=== PATIENT | female | born 1970 | race Caucasian/White ===

== ENCOUNTER 2016-07-08 15:24 | Emergency (ER) | payer SELFPAY ==
[~2016-07-08] VITALS: Ht 172.7 cm; Wt 78.2 kg
[~2016-07-08 15:24] MED LIST: ACET-62 PO; DIPH25CA84 PO; OMEP40CA52 PO; SUCR1TAB PO
--- OUTSIDE RECORDS SUMMARY | 2016-07-08 15:27 | XMS REPORT | Continuity of Care Document ---
Author Author [facility] Organization [facility] Address Unknown Phone Unavailable Support Name Relationship Address Phone JUSTYN EDMONDSON [place] [address] Unavailable Insurance Providers Payer Name Policy Number Subscriber Name Relationship Self Pay Iris Cuello 18 Self Problems No Known Problems or Medical conditions. Family History History Response Recorded Date/Time HX Cerebrovascular Accident N 09/25/12 8:59am Hx Seizures N 09/25/12 8:59am Hx Angina N 09/25/12 8:59am Hx Congestive Heart Failure N 09/25/12 8:59am Hx Heart Attack N 09/25/12 8:59am Hx Hypertension N 09/25/12 8:59am Hx Chronic Obstructive Pulmonary Disease (COPD) N 09/25/12 8:59am Hx Diabetes N 09/25/12 8:59am Neurological migraines 06/01/11 6:05pm Social History History Response Recorded Date/Time Smoking Status Former smoker 09/25/12 8:59am Allergies, Adverse Reactions, Alerts Allergen Type Severity Reaction Last Updated No Known Drug Allergies Allergy Unknown 09/25/12 Medications Medication Dose Units Route Sig Qty Days Citalopram Hydrobromide (Celexa) 40 Mg PO HS Topiramate (Topamax) 50 Mg PO BID Amitriptyline Hcl 25 Mg PO HS Paroxetine Hcl 20 Mg PO DAILY Response Recorded Date/Time Status not known Unknown Results No Known Relevant Diagnostic Tests, Laboratory Data and/or Discharge Summary. Procedures Procedure Code Date THER/PROPH/DIAG INJ IV PUSH 15346 06/01/11 TX/PRO/DX INJ SAME DRUG CLAIMS COUNSEL 28102 06/01/11 HYDRATE IV INFUSION ADD-ON 43298 06/01/11 Encounters Encounter Location Date/Time Departed Emergency Room [facility] 09/25/12 8:30am
--- OUTSIDE RECORDS SUMMARY | 2016-07-08 15:27 | XMS REPORT | Continuity of Care Document ---
Author Author [facility] Organization [facility] Address Unknown Phone Unavailable Support Name Relationship Address Phone BHARATH BLAKE Caregiver [facility] [address] [place], [place] [id number] TERESITA SANDOVAL MD Caregiver [address] [place] [address] JUSTYN EDMONDSON [place] [address] Insurance Providers Payer Name Policy Number Subscriber Name Relationship Self Pay Problems Medical Problems Problem Onset Date Status Headache Unknown Active CEPHALGIA Unknown Active Left knee sprain Unknown Active Medications Medication Dose Route Sig Days/Qty Instructions Order Date Discontinued Date Status Ferrous Sulfate 2 Tab PO DAILY 01/15/08 11/20/09 Discontinued [None] 11/20/09 10/01/10 Discontinued Paroxetine Hcl 20 Mg PO DAILY 10/01/10 12/01/11 Discontinued Amitriptyline Hcl 25 Mg PO BEDTIME 10/01/10 12/01/11 Discontinued Rizatriptan Benzoate NEEDED 11/16/13 Active Topiramate Unknown Dose PO TWICE A DAY Take 1/2 (25 mg) tablet, by mouth , 2 times a day. 11/16/13 Active Citalopram Hydrobromide 1 Tab PO DAILY 11/16/13 Active Social History Social History Problem Response Recorded Date/Time Smoking Status Light Smoker 11/16/2013 7:50pm Hx Substance Use No 11/16/2013 7:50pm Hx Alcohol Use No 11/16/2013 7:50pm Query Response Start Date Stop Date Smoking Status Former smoker Hospital Discharge Instructions No hospital discharge instructions. Plan of Care No plan of care. Functional Status Query Response Date Recorded Physical Hygiene Self November 16, 2013 7:50pm Disabilities None November 16, 2013 7:50pm Devices Used None November 16, 2013 7:50pm Dressing Self November 16, 2013 7:50pm Ambulation Self November 16, 2013 7:50pm Diet Self November 16, 2013 7:50pm Mental Status Alert Oriented November 16, 2013 8:43pm Disabilities None November 16, 2013 7:50pm Devices Used None November 16, 2013 7:50pm Physical Hygiene Self November 16, 2013 7:50pm Dressing Self November 16, 2013 7:50pm Ambulation Self November 16, 2013 7:50pm Diet Self November 16, 2013 7:50pm Allergies, Adverse Reactions, Alerts Allergen Type Severity Reaction Status Last Updated No Known Drug Allergies Allergy Unknown Active 11/16/13 Immunizations Name Given Type Hx Influenza Vaccination No Historical Hx Influenza Vaccination No Historical Vital Signs Acute Vital Signs Vital Response Date/Time Temperature (Fahrenheit) 98.2 deg F (96.8 - 99.1) Temperature (Calculated Celsius) 36.52259 degrees C (36.0 - 37.3) Pulse Rate (adult) 80 bpm (60 - 100) Respiratory Rate 16 breaths/min (10 - 20) O2 Sat by Pulse Oximetry 100 % (90 - 100) Blood Pressure 153/84 mm Hg Height 5 ft 7 in Weight 154 lb Body Mass Index 24.0 kg/m^2 Results Test Source Date Result Interp. Ref. Range Comments Alanine Aminotransferase (ALT/SGPT) June 01, 2011 6:46pm 7 U/L L 9-52 Albumin June 01, 2011 6:46pm 4.1 G/DL N 3.5-5.0 Albumin/Globulin Ratio June 01, 2011 6:46pm 1.1 RATIO N 1.1-2.2 Alkaline Phosphatase June 01, 2011 6:46pm 69 U/L N 38-126 Amylase Level November 20, 2009 6:56am 41 U/L N 30-110 Anion Gap April 10, 2013 1:04pm 6 MEQ/L N 5-15 Aspartate Amino Transf (AST/SGOT) June 01, 2011 6:46pm 20 U/L N 14-36 BUN/Creatinine Ratio April 10, 2013 1:04pm 13 RATIO N 6-26 Basophils # (Auto) April 10, 2013 1:04pm 0.0 T/MM3 N 0-0.2 Basophils (%) (Auto) April 10, 2013 1:04pm 0.5 % N 0-2 Blood Urea Nitrogen April 10, 2013 1:04pm 8.0 MG/DL N 7-17 Calcium Level April 10, 2013 1:04pm 8.9 MG/DL N 8.4-10.2 Calculated Osmolality April 10, 2013 1:04pm 264 MOSM/KG N 261-280 Carbon Dioxide Level April 10, 2013 1:04pm 22 MEQ/L N 22-30 Chloride Level April 10, 2013 1:04pm 110 MEQ/L H 98-107 Conjugated Bilirubin November 20, 2009 6:56am 0.00 MG/DL N 0.00-0.30 Creatinine April 10, 2013 1:04pm 0.6 MG/DL L 0.7-1.2 Eosinophils # (Auto) April 10, 2013 1:04pm 0.0 T/MM3 N 0-0.5 Eosinophils (%) (Auto) April 10, 2013 1:04pm 0.6 % N 0-4 Ferritin May 24, 2011 11:35am 4.55 NG/ML L 6-137 Free Thyroxine September 22, 2010 12:14pm 1.02 NG/DL N 0.78-2.19 Globulin June 01, 2011 6:46pm 3.7 G/DL H 2.4-3.6 Glucose Level April 10, 2013 1:04pm 100 MG/DL N 65-110 Hematocrit April 10, 2013 1:04pm 32.8 % L 36-46 Hemoglobin April 10, 2013 1:04pm 9.4 GM/DL L 12-16 Human Chorionic Gonadotropin, Qual April 10, 2013 1:04pm Negative - Iron Level May 24, 2011 11:35am 31 UG/DL L 37-170 Lipase November 20, 2009 6:56am 73 U/L N 23-300 Lymphocytes # (Auto) April 10, 2013 1:04pm 1.8 T/MM3 N 1-4.8 Lymphocytes (%) (Auto) April 10, 2013 1:04pm 27.8 % N 23-45 Mean Corpuscular Hemoglobin April 10, 2013 1:04pm 20.2 UUG L 26-34 Mean Corpuscular Hemoglobin Concent April 10, 2013 1:04pm 28.7 GM/DL L 31-37 Mean Corpuscular Volume April 10, 2013 1:04pm 70.5 UM3 L 80-100 Mean Platelet Volume April 10, 2013 1:04pm 9.0 UM3 L 9.4-12.4 Monocytes # (Auto) April 10, 2013 1:04pm 0.3 T/MM3 N 0-0.8 Monocytes (%) (Auto) April 10, 2013 1:04pm 4.4 % N 0-9.0 Neutrophils # (Auto) April 10, 2013 1:04pm 4.3 T/MM3 N 1.8-7.7 Neutrophils (%) (Auto) April 10, 2013 1:04pm 66.5 % H 33-66 Percent Iron Saturation February 18, 2011 2:45pm 8 % L 9-55 Platelet Count April 10, 2013 1:04pm 346 T/MM3 N 130-400 Potassium Level April 10, 2013 1:04pm 4.1 MEQ/L N 3.6-5 RDW Standard Deviation April 10, 2013 1:04pm 52.3 FL H 36.9-50.2 Red Blood Count April 10, 2013 1:04pm 4.65 M/MM3 N 4.00-5.20 Sodium Level April 10, 2013 1:04pm 138 MEQ/L N 134-144 Thyroid Stimulating Hormone (TSH) September 22, 2010 12:14pm 0.82 MIU/L N 0.47-4.68 Total Bilirubin June 01, 2011 6:46pm 0.30 MG/DL N 0.20-1.30 Total Iron Binding Capacity February 18, 2011 2:45pm 349 UG/DL N 261- 497 Total Protein June 01, 2011 6:46pm 7.8 G/DL N 6.3-8.2 Unconjugated Bilirubin November 20, 2009 6:56am 0.45 MG/DL N 0.00-1.10 Urine Bacteria November 20, 2009 7:24am Trace H - Has specimen been collected/obtained? YWhat is the Source? VOIDED Urine Bilirubin June 01, 2011 7:05pm Negative - Has specimen been collected/obtained? Y Urine Blood June 01, 2011 7:05pm Negative - Has specimen been collected/obtained? Y Urine Collection Type June 01, 2011 7:05pm Voided - Has specimen been collected/obtained? Y Urine Color June 01, 2011 7:05pm Yellow - Has specimen been collected/obtained? Y Urine Glucose (UA) June 01, 2011 7:05pm Negative - Has specimen been collected/obtained? Y Urine Ketones June 01, 2011 7:05pm Negative - Has specimen been collected/obtained? Y Urine Leukocyte Esterase June 01, 2011 7:05pm Negative - Has specimen been collected/obtained? Y Urine Mucus November 20, 2009 7:24am Present - Has specimen been collected/obtained? YWhat is the Source? VOIDED Urine Nitrite June 01, 2011 7:05pm Negative - Has specimen been collected/obtained? Y Urine Protein June 01, 2011 7:05pm Negative - Has specimen been collected/obtained? Y Urine RBC November 20, 2009 7:24am 3-5 /HPF H - Has specimen been collected/obtained? YWhat is the Source? VOIDED Urine Specific [place] June 01, 2011 7:05pm 1.015 - Has specimen been collected/obtained? Y Urine Squamous Epithelial Cells November 20, 2009 7:24am Moderate - Has specimen been collected/obtained? YWhat is the Source? VOIDED Urine Turbidity June 01, 2011 7:05pm Clear - Has specimen been collected/obtained? Y Urine Urobilinogen June 01, 2011 7:05pm Normal EU/DL - Has specimen been collected/obtained? Y Urine WBC November 20, 2009 7:24am 1-3 /HPF - Has specimen been collected/obtained? YWhat is the Source? VOIDED Urine pH June 01, 2011 7:05pm 7.0 - Has specimen been collected/ obtained? Y White Blood Count April 10, 2013 1:04pm 6.4 T/MM3 N 4.5-11.0 Chemistry Specimen Hemolysis April 10, 2013 1:04pm < 15 - Lab Scanned Report October 06, 2011 9:02pm LAB TEST FORM REQUEST [id number] - Turbidity April 10, 2013 1:04pm < 20 - Glomerular Filtration Rate Calc April 10, 2013 1:04pm 110 - Immature Granulocyte # (Auto) April 10, 2013 1:04pm 0.01 T/MM3 N 0.00 -0.03 Immature Granulocyte % (Auto) April 10, 2013 1:04pm 0.2 % N 0.0-0.5 Icterus Index April 10, 2013 1:04pm < 2 - Name: IRIS GUILLEN Unit #: [id number] : 1970 Sex: F Loc / Svc: ED DOS: 09/17/13 Signed Report #: [id number] DIAGNOSTIC IMAGING REPORT TYPE OF EXAM: KNEE LEFT 3 VIEWS Dictated By: DENI MIX MD INDICATION: ITS.REASON: fell; twisting injury; pain and swelling COMPARISON: none. KNEE LEFT 3 VIEWS: There is no evidence of fracture, dislocation, or joint narrowing. IMPRESSION: Negative x-rays . Procedures No known history of procedures. Encounters Encounter Location Date/Time Departed Emergency Room [facility] 11/16/13 5:50pm Departed Emergency Room [facility] 09/17/13 11:17pm Recent Diagnosis
--- OUTSIDE RECORDS SUMMARY | 2016-07-08 15:28 | XMS REPORT | Continuity of Care Document ---
Author Author [facility] Organization [facility] Address Unknown Phone Unavailable Support Name Relationship Address Phone HARRISON HAYES APRN Caregiver [address] [place] [address] Unavailable MATY KAN MD Caregiver [address] [place] [address] [place] [address] Unavailable JUSTYN [place] [address] Insurance Providers Guarantor Simona Guillen Address [address] [place] [phone] C Email DENIED/04-13-16 Payer Self Pay Subscriber's Name GuillenNohemia Relationship 18 Self Advance Directives Directive Response Recorded Date/Time Ordered Resuscitation Status Full Code 05/04/16 3:51pm Resuscitation Documents on File No 05/05/16 6:57am DPOA for Healthcare Only No 05/05/16 6:57am Living Will No 05/05/16 6:57am Problems Active Problems Medical Problem Onset Date Status Anemia Unknown Acute CEPHALGIA Unknown Acute Headache Unknown Acute Headache Unknown Acute Left knee sprain Unknown Acute Photophobia Unknown Acute Vomiting with nausea, not intractable Unknown Acute Past Problems Medical Problem Onset Date CEPHALGIA Unknown Migraine Unknown Migraine headache Unknown Medications Current Home Medications Medication Dose Units Route Directions Days Qty Instructions Start Date Acetaminophen 500 Mg Tablet 1,000 Mg Oral Every 8 Hours as needed for Pain 02/01/16 Diphenhydramine Hcl (Benadryl) 25 Mg Capsule 25 Mg Oral Every 4 Hours as needed for Prn Orders 02/01/16 Omeprazole 40 Mg Capsule. 1 Cap Oral Before Breakfast 30 Days 30 Capsule 05/05/16 Sucralfate 1 Gm Tablet 1 Gm Oral Before Meals And At Bedtime 30 Days 120 Tablet Take 1 tablet, by mouth, 4 times a day (Before meals and at BEDTIME). 05/05/16 Past Home Medications Medication Directions Ordered Status Amitriptyline Hcl 25 Mg Tablet, 25 Mg Oral Bedtime 10/01/10 Discontinued Ferrous Sulfate (Iron) 1 Tab Tablet, 2 Tab Oral Daily 01/15/08 Discontinued Ibuprofen 600 Mg Tablet, 1 Tab Oral Every 6 Hours as needed for Pain Discontinued None , 11/20/09 Discontinued Paroxetine Hcl 20 Mg Tablet, 20 Mg Oral Daily 10/01/10 Discontinued Topiramate (Topamax) 25 Mg Tablet, Unknown Dose Oral Twice A Day 11/16/13 Discontinued Social History Social History Problem Response Recorded Date/Time Onset Date Status Reason for Hospitalization COLONOSCOPY AND EGD 05/05/2016 9:57am Not Applicable Not Applicable Chewing Tobacco Status No 05/04/2016 10:35am Not Applicable Not Applicable Hx Substance Use No 05/04/2016 10:35am Not Applicable Not Applicable Hx Alcohol Use Y EVERY OTHER DAY 05/04/2016 10:35am Not Applicable Not Applicable Has the pt used tobacco in the last 12 months Yes 05/05/2016 7:00am Not Applicable Not Applicable Query Response Start Date Stop Date Smoking Status Current every day smoker Hospital Discharge Instructions Instructions: Care Instructions: I was in the hospital because (patient own words): TO HAVE AN EGD AND COLONOSCOPY Discharge Diet: You may resume your usual diet. Discharge Activity: You may resume your usual activity. Follow Up Appointments: No specific follow-up appointment with Dr. Kan is necessary. You can call his office for any questions or concerns ([phone]). Dr. Kan's office will notify you of your results in about 2 weeks. Pending Lab / Results: Will be notified Patient Instructions: Do not drive, operate machinery, drink alcohol, or sign important papers for 24 hours. Expected Signs/Symptoms: You may have some gas discomfort. Notify Physician If: Contact Dr. Kan if you have a fever over 101 degrees, severe abdominal pain, or severe rectal bleeding. During Business Hours:: *In the event of an emergency, call 911 or seek medical care at the nearest emergency room.* During office hours, call Dr. Kan's office at [phone]. After Business Hours:: After hours, please call [facility] at [phone] and have the trolley car operator page Dr. Kan or the covering surgeon. Pain Management/Treatment: You should not have significant pain following the procedure. Wound/Incision Care: No wound care required. Condition at time of discharge: Good Plan of Care Discharge Date 05/05/16 11:10am Instructions/Education Provided [facility] Prescriptions See Medication Section Functional Status Query Response Date Recorded Ability to complete ADL's impeded by No change May 05, 2016 6:57am Allergies, Adverse Reactions, Alerts Allergen Type Severity Reaction Status Last Updated No Known Drug Allergies Allergy Unknown Active 05/05/16 Immunizations Query Response on File Recorded Date/Time Hx Influenza Vaccination Y 2015 05/04/16 10:35am Hx Pneumococcal Vaccination No 05/04/16 10:35am Hx Influenza Vaccination Y 2015 05/04/16 10:35am Influenza Vaccine Hx NOT REC'D 02/01/16 11:40am Vital Signs Acute Vital Signs Vital Response Date/Time Temperature (Fahrenheit) 97.7 deg F (96.8 - 99.1) 05/05/2016 9:47am Temperature (Calculated Celsius) 36.99503 degrees C (36.0 - 37.3) 05/05/2016 9:47am Temperature Source Temporal 05/05/2016 9:47am Pulse Rate (adult) 68 bpm (60 - 100) 05/05/2016 10:49am Respiratory Rate 16 breaths/min (10 - 20) 05/05/2016 10:49am O2 Sat by Pulse Oximetry 100 % (90 - 100) 05/05/2016 10:49am Oxygen Delivery Method Room Air 05/05/2016 10:49am Blood Pressure 154/79 mm Hg 05/05/2016 10:49am Blood Pressure Source Automatic Cuff 05/05/2016 10:49am Height (Feet) 5 feet 05/05/2016 6:50am Height (Inches) 8.00 inches 05/05/2016 6:50am Weight (Kilograms) 77.000 kg 05/05/2016 6:50am Body Mass Index (BMI) 25.8 05/05/2016 6:50am Results Laboratory Results Test Name Result Units Flags Reference Collection Date/Time Result Date/ Time Comments Stool Occult Blood NEGATIVE 02/26/2016 UNK 02/26/2016 4:25pm ALL THREE NEGATIVE Neutrophils (%) (Auto) 60.8 % 33-66 03/08/2016 4:15pm 03/08/2016 4: 19pm Lymphocytes (%) (Auto) 33.2 % 23-45 03/08/2016 4:15pm 03/08/2016 4: 19pm Monocytes (%) (Auto) 4.5 % 0-9.0 03/08/2016 4:15pm 03/08/2016 4:19pm Eosinophils (%) (Auto) 1.0 % 0-4 03/08/2016 4:15pm 03/08/2016 4:19pm Basophils (%) (Auto) 0.4 % 0-2 03/08/2016 4:15pm 03/08/2016 4:19pm Immature Granulocyte % (Auto) 0.1 % 0.0-0.5 03/08/2016 4:15pm 2016 4:19pm Absolute Neutrophils (auto) 4.8 T/MM3 1.8-7.7 03/08/2016 4:15pm 2016 4:19pm Absolute Lymphocytes (auto) 2.6 T/MM3 1-4.8 03/08/2016 4:15pm 2016 4:19pm Absolute Monocytes (auto) 0.4 T/MM3 0-0.8 03/08/2016 4:15pm 03/08/2016 4:19pm Absolute Eosinophils (auto) 0.1 T/MM3 0-0.5 03/08/2016 4:15pm 2016 4:19pm Absolute Basophils (auto) 0.0 T/MM3 0-0.2 03/08/2016 4:15pm 03/08/2016 4:19pm Absolute Immature Granulocyte (auto 0.01 T/MM3 0.00-0.03 03/08/2016 4: 15pm 03/08/2016 4:19pm Reason Tests Not Done REFERENCE LAB ISSUE 03/22/2016 7:24am 2016 8:45am Tests Not Done P[facility]-A 03/22/2016 7:24am 03/22/2016 7:26am Specimen Comment (Misc) REORDER NEEDED 03/22/2016 7:24am 2016 8:45am White Blood Count 15.2 T/MM3 H 4.5-11.0 04/13/2016 1:01pm 04/13/2016 1: 26pm Red Blood Count 4.69 M/MM3 4.00-5.20 04/13/2016 1:01pm 04/13/2016 1: 26pm Hemoglobin 8.8 GM/DL L 12-16 04/13/2016 1:01pm 04/13/2016 1:26pm Hematocrit 30.9 % L 36-46 04/13/2016 1:01pm 04/13/2016 1:26pm Mean Corpuscular Volume 65.9 UM3 L 80-100 04/13/2016 1:01pm 04/13/2016 1 :26pm Mean Corpuscular Hemoglobin 18.8 UUG L 26-34 04/13/2016 1:01pm 2016 1:26pm Mean Corpuscular Hemoglobin Concent 28.5 GM/DL L 31-37 04/13/2016 1:01pm 04/13/2016 1:26pm RDW Standard Deviation 44.6 FL 36.9-50.2 04/13/2016 1:01pm 04/13/2016 1 :26pm Platelet Count 336 T/MM3 130-400 04/13/2016 1:01pm 04/13/2016 1:26pm Mean Platelet Volume 9.0 UM3 L 9.4-12.4 04/13/2016 1:01pm 04/13/2016 1: 26pm Neutrophils % (Manual) 84.0 % H 33-66 04/13/2016 1:01pm 04/13/2016 1: 30pm Lymphocytes % (Manual) 10.0 % L 23-45 04/13/2016 1:01pm 04/13/2016 1: 30pm Monocytes % (Manual) 6.0 % 0-9.0 04/13/2016 1:01pm 04/13/2016 1:30pm Absolute Neutrophils (Manual) 12.8 T/MM3 H 1.8-7.7 04/13/2016 1:01pm 1:30pm Lymphocytes # (Manual) 1.5 T/MM3 1-4.8 04/13/2016 1:01pm 04/13/2016 1: 30pm Monocytes # (Manual) 0.9 T/MM3 H 0-0.8 04/13/2016 1:01pm 04/13/2016 1: 30pm Red Cell Morphology Comment ABNORMAL 04/13/2016 1:01pm 04/13/2016 1 :30pm Poikilocytosis 2+ 04/13/2016 1:01pm 04/13/2016 1:30pm [facility] Interpretation SEE BELOW 04/13/2016 1:01pm 04/16/2016 4:05pm Peripheral blood, flow cytometric immunophenotyping: Normal phenotyping results. No [facility] clone is detected in RBC, granulocytes, or monocytes. Clinical correlation is recommended. Recent transfusion can decrease the sensitivity of this test and interfere with accuracy. The specimen received is satisfactory for quality analysis. Reviewed by: Barber Hinojosa M.D. 04/16/2016 3:58 PM Testing results: See table ADDITIONAL INFORMATION Antibodies to the following antigens were used for cell gating and interpretation. RBCs: RV242k and CD59. WBCs: CD14, CD15, CD16, CD24, CD33, CD45, FLAER. This test was developed using an analyte specific reagent. Its performance characteristics were determined by [facility] in a manner consistent with CLIA requirements. This test has not been cleared or approved by the U.S. Food and Drug Administration. [facility] RBC Partial Antigen Loss 0.01 % 04/13/2016 1:01pm 04/16/2016 4: 05pm Reference Range: 0.00-0.99 [facility] RBC Complete Antigen Loss 0.00 % 04/13/2016 1:01pm 04/16/2016 4: 05pm Reference Range: 0.00-0.01 [facility] Granulocytes 0.00 % 04/13/2016 1:01pm 04/16/2016 4:05pm Reference Range: 0.00-0.01 [facility] Monocytes 0.00 % 04/13/2016 1:01pm 04/16/2016 4:05pm Reference Range: 0.00-0.05 Test Performed by: [place] [address] [employer]: Kashmir Goddard II, M.D., Ph.D. [facility] PI-Linked Ag performed at [facility], [address] [place] [address] Project Manager/Design Manager Rupesh Lawler MD Procedures Procedure Status Date Provider(s) Esophagogastroduodenoscopy (EGD) with closed biopsy Completed 05/05/16 MATY KAN MD Colonoscopy Completed 05/05/16 MATY KAN MD Encounters Encounter Location Arrival/Admit Date Discharge/Depart Date Attending Provider Departed [facility] 05/05/16 6:37am 05/05/16 11 :10am MATY KAN MD Registered [facility] 04/13/16 12:50pm ROLANDO ENCARNACION MD Registered [facility] 03/08/16 3:59pm ROLANDO ENCARNACION MD Registered [facility] 02/26/16 4:14pm ROLANDO ENCARNACION MD
--- OUTSIDE RECORDS SUMMARY | 2016-07-08 15:28 | XMS REPORT | Continuity of Care Document ---
Author Author [facility] Organization [facility] Address Unknown Phone Unavailable Support Name Relationship Address Phone FRANCISCO HILL MD Caregiver [address] [place] [address] Unavailable TERESITA SANDOVAL MD Caregiver [address] [place] [address] JUSTYN EDMONDSON [place] [address] Insurance Providers Payer Name Policy Number Subscriber Name Relationship Premises Med(Medicare/Caid/Tr Simona Guillen 18 Self Problems Medical Problems Problem Onset Date Status Headache Unknown Active CEPHALGIA Unknown Active Left knee sprain Unknown Active Medications Medication Dose Route Sig Days/Qty Instructions Order Date Discontinued Date Status Ferrous Sulfate 2 Tab PO DAILY 01/15/08 11/20/09 Discontinued [None] 11/20/09 10/01/10 Discontinued Paroxetine Hcl 20 Mg PO DAILY 10/01/10 12/01/11 Discontinued Amitriptyline Hcl 25 Mg PO BEDTIME 10/01/10 12/01/11 Discontinued Hydrocodone/Acetaminophen 1-2 Tab PO Every 6 Hours PRN PAIN 15 Qty Active Social History Social History Problem Response Recorded Date/Time Smoking Status Current every day smoker 09/17/2013 11:33pm Hx Substance Use No 09/17/2013 11:33pm Hx Alcohol Use No 09/17/2013 11:33pm Query Response Start Date Stop Date Smoking Status Former smoker Hospital Discharge Instructions No hospital discharge instructions. Plan of Care No plan of care. Functional Status Query Response Date Recorded Physical Hygiene Self September 17, 2013 11:33pm Disabilities None September 17, 2013 11:33pm Devices Used None September 17, 2013 11:33pm Dressing Self September 17, 2013 11:33pm Ambulation Self September 17, 2013 11:33pm Diet Self September 17, 2013 11:33pm Mental Status Alert Oriented September 17, 2013 11:33pm Disabilities None September 17, 2013 11:33pm Devices Used None September 17, 2013 11:33pm Physical Hygiene Self September 17, 2013 11:33pm Dressing Self September 17, 2013 11:33pm Ambulation Self September 17, 2013 11:33pm Diet Self September 17, 2013 11:33pm Allergies, Adverse Reactions, Alerts Allergen Type Severity Reaction Status Last Updated No Known Drug Allergies Allergy Unknown Active 09/18/13 Immunizations Name Given Type Hx Influenza Vaccination No Historical Hx Influenza Vaccination No Historical Vital Signs Acute Vital Signs Vital Response Date/Time Temperature (Fahrenheit) 97.2 deg F (96.8 - 99.1) Temperature (Calculated Celsius) 36.23146 degrees C (36.0 - 37.3) Pulse Rate (adult) 66 bpm (60 - 100) Respiratory Rate 18 breaths/min (10 - 20) O2 Sat by Pulse Oximetry 100 % (90 - 100) Blood Pressure 132/76 mm Hg Height 5 ft 7 in [...] - Has specimen been collected/obtained? Y Urine Test January 19, 2013 2:38am Negative - Has specimen been collected/obtained? Y Urine Protein June 01, 2011 7:05pm Negative - Has specimen been collected/obtained? Y Urine RBC November 20, 2009 7:24am 3-5 /HPF H - Has specimen been collected/obtained? YWhat is the Source? VOIDED Urine Specific [place] June 01, 2011 7:05pm 1.015 - Has [...] 06, 2011 9:02pm LAB TEST FORM REQUEST [id number] - Turbidity April 10, 2013 1:04pm < 20 - Glomerular Filtration Rate Calc April 10, 2013 1:04pm 110 - Immature Granulocyte # (Auto) April 10, 2013 1:04pm 0.01 T/MM3 N 0.00 -0.03 Immature Granulocyte % (Auto) April 10, 2013 1:04pm 0.2 % N 0.0-0.5 Icterus Index April 10, 2013 1:04pm < 2 - Procedures No known history of procedures. Encounters Encounter Location Date/Time Departed Emergency Room [facility] 09/17/13 11:17pm Recent Diagnosis
[2016-07-08 15:35] VITALS: TEMP 98.2; Ht 172.7 cm; Wt 78.2 kg
[2016-07-08] MEDS ORDERED: PROCHLORPERAZINE 10mg/2ml INJECTION IM ONE (15:45)
[2016-07-08] MEDS ORDERED: ORPHENADRINE 60mg/2ml INJECTION IM ONE (15:45)
[2016-07-08] MEDS ORDERED: KETOROLAC 60mg/2ml INJECTION IM ONE (15:45)
[2016-07-08] MEDS ORDERED: SUCR1TAB PO (15:49)
--- NOTE | 2016-07-08 15:50 | ERPDOC ---
Departure Disposition Decision Date: July 08, 2016 Disposition Decision Time: 16:29 Disposition: 01 DISCHARGED HOME, SELF-CARE Impression Impression Impression: Primary Impression: Migraine Qualified Codes: G43.909 - Migraine, unspecified, not intractable, without status migrainosus Severity: Moderate Condition: Stable Seen By: Mid-level only Referrals: HARRISON HAYES APRN (Family) Patient Instructions: Migraine Headache (ED) Problems/Meds/Labs Reviewed?: Yes Medications reviewed and manag: Yes Additional Instructions: Go home and rest in a quiet and dark room. Follow up with your primary care provider for reevaluation if you are not improving at all. Make sure you are drinking plenty of fluids at home. May continue with the OTC medications as needed as well. Follow up care ordered?: Yes Mental Status: Alert, Oriented HPI - Headache General Chief Complaint: Headache Stated Complaint: MIGRAINE Time Seen by Provider: 15:42 Source: patient Exam Limitations: no limitations HPI - Headache Initial Comments She has a history of migraines. This migraine started today at 2am. She has taken some Benadryl and Tylenol at home without relief. Pain is the same as her typical migraines. She is having photophobia and nausea/vomiting as well. Denies any fever or chills. Occurred At: home Onset: Gradual Duration: 6-12 hrs, other (Since 2 am) Severity/Quality: severe Location: temporal Prior Headaches/Recent Trauma: no recent headache/trauma Associated Symptoms: facial pain, nausea/vomiting, DENIES: confusion, fatigue, fever/chills, flushing, loss of consciousness, nasal congestion, nasal drainage , numbness in legs/feet, rash, seizures, sinus infection, stiff neck, vision changes, weakness Hx of Similar Symptoms: Yes Allergies: Coded Allergies: No Known Drug Allergies (Verified Allergy, Unknown, 05/05/16) Past History Past Medical History Hx Echocardiogram: No Neurological: migraines Hematologic: anemia, blood transfusion Psychological: anxiety, bipolar, depression Surgical History Reproductive/: other Family History Family PMH: FOUND: asthma, other Vaccines Hx Influenza Vaccination: Yes (2015) Hx Pneumococcal Vaccination: No Social History Does patient use chewing tobac: No # of Packs/Tins per Day: 0.5 # of Years: 8 Substance Use Type: does not use Alcohol Intake: none Sexuality: male partner Current Occupation: works at [employer] Systems Constitutional Constitutional: DENIES: chills, dizziness, fatigue, fever, weakness Eyes Vision: DENIES: blurring, double vision ENMT Ears: DENIES: drainage, pain Sinuses: DENIES: congestion, rhinorrhea Mouth/Throat: DENIES: painful swallowing, scratchy throat, sore throat Cardiovascular Cardiac: DENIES: chest pain, orthopnea Rhythm/Rate: DENIES: irregular beat, palpitations Pulmonary Respiratory: DENIES: cough, dyspnea, sputum, tachypnea GI Upper Abdomen: nausea, vomiting, DENIES: pain Lower Abdomen: DENIES: constipation, diarrhea, pain Integumentary Skin: DENIES: rash Neurological General: headache, DENIES: numbness, tingling, weakness Physical Exam General General Nourishment: well nourished, well developed, appears stated age, no acute distress, adult General Body Habitus: well groomed Vitals and Pain First Documented Vital Signs Date Time Temp Pulse Resp B/P Pulse Ox O2 Delivery O2 Flow Rate FiO2 07/08/16 15:35 98.2 63 18 183/89 99 07/08/16 16:40 Room Air Weight: Kilograms: 78.200 Height (feet): 5 Height (inches): 8.00 Triage Pain Scale: RN VS reviewed by Provider: Yes Normal Exams: Head: Normocephalic w/o trauma Eyes: Pupils are PERRLA w/ EOMI, No scleral icterus, irritation, or foreign bodies noted ENMT: No facial trauma, nasal exudates, pharyngeal erythema, or exudates are noted Neck: Full range of motion, without adenopathy, JVD, bruits or thyromegaly Chest/Resp: Clear all hess, with good airflow, and symmetry bilaterally CV: Regular rate and rhythm, without murmur or gallop, Pulses 2+ all extremities, capillary refill, <2 seconds all ext., no pedal edema noted Abdomen: Bowel sounds positive, soft, non-tender, non-distended, no hepatosplenomegaly, masses or bruits noted Lymphatic: No lymphadenopathy, or lymphedema noted Integumentary: No rashes, hives, or bruising noted Neurologic: Patient is alert, and oriented, cranial nerves, motor/sensory/ cerebellar, exams w/o gross deficits, to observation Psychiatric: Patient exhibits, appropriate attention, emotion and affect Differential Diagnoses Considering: Headache, Headache - Migraine, Headache - Tension/Muscle, Sub- arachnoid Hemorrhage Progress Results/Orders Orders Procedure Category Date Status Time Ketorolac (Toradol) PHA 07/08/16 Complete 15:45 Prochlorperazine PHA 07/08/16 Complete (Compazine) 15:45 Orphenadrine (Norflex) PHA 07/08/16 Complete 15:45 Morphine Sulfate PHA 07/08/16 Complete (Morphine) 16:30 Medications Current ED Medications Ketorolac Tromethamine (Toradol) 60 mg O ONCE IM Last administered on 16:05; Start 07/08/16 at 15:45; Stop 07/08/16 at 15:46; Status DC Prochlorperazine Edisylate (Compazine) 10 mg O ONCE IM Last administered on 16:08; Start 07/08/16 at 15:45; Stop 07/08/16 at 15:46; Status DC Orphenadrine Citrate (Norflex) 60 mg O ONCE IM Last administered on 07/08/16 16:07; Start 07/08/16 at 15:45; Stop 07/08/16 at 15:46; Status DC Morphine Sulfate (Morphine) 4 mg O ONCE IM Last administered on 07/08/16 16: 37; Start 07/08/16 at 16:30; Stop 07/08/16 at 16:31; Status DC Progress Progress Pain has improved, down to 5/10 at this time. Will go ahead with another injection of pain medication at this time. HANNAH CHAVIS APRN July 08, 2016 15:49
--- OUTSIDE RECORDS SUMMARY | 2016-07-08 15:53 | XMS REPORT | Continuity of Care Document ---
Author Author [facility] Organization [facility] Address Unknown Phone Unavailable Support Name Relationship Address Phone JUSTYN EDMONDSON [place] [address] Unavailable Insurance Providers Payer Name Policy Number [...] Procedure Code Date THER/PROPH/[place] PUSH 02088 06/01/11 TX/PRO/DX INJ SAME DRUG MEAT STRINGER 06361 06/01/11 HYDRATE IV INFUSION ADD-ON 08800 06/01/11 Encounters Encounter Location Date/Time Departed Emergency Room [facility] 09/25/12 8:30am
--- OUTSIDE RECORDS SUMMARY | 2016-07-08 15:54 | XMS REPORT | Continuity of Care Document ---
Author Author [facility] Organization [facility] Address Unknown Phone Unavailable Support Name Relationship Address Phone BHARATH BLAKE Caregiver [facility] [address] [place], [place] [id number] TERESITA SANDOVAL MD Caregiver [address] [place] [address] JUSTYN EDMONDSON [place] [address] Insurance Providers Payer Name Policy [...] F (96.8 - 99.1) Temperature (Calculated Celsius) 36.08884 degrees C (36.0 - 37.3) Pulse Rate [...] YWhat is the Source? VOIDED Urine Specific [place] June 01, 2011 7:05pm 1.015 - Has [...] 06, 2011 9:02pm LAB TEST FORM REQUEST [id number] - Turbidity April 10, 2013 1:04pm < 20 - Glomerular Filtration Rate Calc April 10, 2013 1:04pm 110 - Immature Granulocyte # (Auto) April 10, 2013 1:04pm 0.01 T/MM3 N 0.00 -0.03 Immature Granulocyte % (Auto) April 10, 2013 1:04pm 0.2 % N 0.0-0.5 Icterus Index April 10, 2013 1:04pm < 2 - Name: IRIS GUILLEN Unit #: [id number] : 1970 Sex: F Loc / Svc: ED DOS: 09/17/13 Signed Report #: [id number] DIAGNOSTIC IMAGING REPORT TYPE OF EXAM: KNEE LEFT 3 VIEWS Dictated By: DENI MIX MD INDICATION: ITS.REASON: fell; twisting injury; pain and swelling COMPARISON: none. KNEE LEFT 3 VIEWS: There is no evidence of fracture, dislocation, or joint narrowing. IMPRESSION: Negative x-rays . Procedures No known history of procedures. Encounters Encounter Location Date/Time Departed Emergency Room [facility] 11/16/13 5:50pm Departed Emergency Room [facility] 09/17/13 11:17pm Recent Diagnosis
--- OUTSIDE RECORDS SUMMARY | 2016-07-08 15:55 | XMS REPORT | Continuity of Care Document ---
Author Author [facility] Organization [facility] Address Unknown Phone Unavailable Support Name Relationship Address Phone FRANCISCO HILL MD Caregiver [address] [place] [address] Unavailable TERESITA SANDOVAL MD Caregiver [address] [place] [address] JUSTYN EDMONDSON Next [place] [address] Insurance Providers Payer Name Policy [...] F (96.8 - 99.1) Temperature (Calculated Celsius) 36.62945 degrees C (36.0 - 37.3) Pulse Rate [...] YWhat is the Source? VOIDED Urine Specific [place] June 01, 2011 7:05pm 1.015 - Has [...] 06, 2011 9:02pm LAB TEST FORM REQUEST [id number] - Turbidity April 10, 2013 1:04pm < [...] Location Date/Time Departed Emergency Room [facility] 09/17/13 11:17pm Recent Diagnosis
--- NOTE | 2016-07-08 16:28 | NUR ---
JOE WEBB IN WITH PT
[2016-07-08] MEDS ORDERED: MORPHINE SULFATE 4 MG SYRINGE IM ONE (16:30)
[2016-07-08 16:40] VITALS: BP 150/69; PULSE 63; RESP 18; O2SAT 100
== END 2016-07-08 16:40 | disposition home or self-care (01) ==
LOC: ED 15:24
DX: G43.909 Migraine, unspecified, not intractable, without status migrainosus (principal)
CPT/HCPCS: 96372